=== PATIENT | female | born 1995 | race Caucasian/White ===

== ENCOUNTER 2023-08-14 08:17 | Emergency (ER) | payer SELFPAY | END 2023-08-14 08:55 | disposition home or self-care (01) | LOC: CSHERS 08:17 | DX: K04.7 Periapical abscess without sinus (principal); F17.210 Nicotine dependence, cigarettes, uncomplicated | CPT/HCPCS: 99283 ==

== ENCOUNTER 2023-08-15 08:34 | Emergency (ER) | payer SELFPAY ==
[2023-08-15] MEDS ORDERED: Dexamethasone 4 MG TAB ONE (09:37)
== END 2023-08-15 09:51 | disposition home or self-care (01) ==
LOC: CSHERS 08:34
DX: K04.7 Periapical abscess without sinus (principal); F17.290 Nicotine dependence, other tobacco product, uncomplicated
CPT/HCPCS: 99283; J8540